=== PATIENT | male | born 1995 | race Two or more races ===

== ENCOUNTER 2016-08-14 00:57 | Emergency (ER) | payer OTHER ==
[2016-08-14 02:00] VITALS: BP 126/67; PULSE 79; TEMP 98.6; BMI 21.9
[2016-08-14] MEDS ORDERED: KETOROLAC TROMETHAMINE 30 MG/1 ML VIAL IM ONE (02:23)
[2016-08-14] MEDS ORDERED: IBUPROFEN 600 MG TABLET (FP) PO ONE (02:40)
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
== END 2016-08-14 03:51 | disposition home or self-care (01) ==
LOC: JER 00:57
PROC: 3E0233Z Introduction of Anti-inflammatory into Muscle, Percutaneous Approach (ICD-10-PCS; principal; 2016-08-14)
DX: S13.4XXA Sprain of ligaments of cervical spine, initial encounter (principal); V43.52XA Car driver injured in collision with other type car in traffic accident, initial encounter; Y92.488 Other paved roadways as the place of occurrence of the external cause; Y93.89 Activity, other specified
CPT/HCPCS: 72125-TC; 99282-25